=== PATIENT | female | born 1985 | race Two or more races ===

== ENCOUNTER 2020-06-25 17:32 | Emergency (ER) | payer MEDICAID ==
[~2020-06-25] VITALS: Ht 160 cm; Wt 83.5 kg
--- NOTE | 2020-06-25 18:02 | NUR ---
ED Nurse Note: Pt ambulated to ed c/o left lower qudarant abdomen pain with hemturia with visible clots. pt states that she is 8 weeks 2 para 3. pt reports that this will be her 4th . IV site established, pt urine and blood specimen collected. Addendum: 06/25/20 at 1900 by MAXIMUSON Amendment undone in EDM - 06/25/20 at 1901 by DONTE ED Nurse Note: Pt ambulated to ed c/o left lower qudarant abdomen pain with hemturia with visible clots. pt states that she is 8 weeks 24 para 2. pt reports that this will be her 4th . IV site established, pt urine and blood specimen collected. Addendum: 06/25/20 at 1901 by MAXIMUSON ED Nurse Note: Pt ambulated to ed c/o left lower qudarant abdomen pain with hemturia with visible clots. pt states that she is 8 weeks 4 para 2. IV site established, pt urine and blood specimen collected.
[2020-06-25 18:15] LABS: BASOPHILS % (AUTO) 0.7 % (0.0-2.0); HEMATOCRIT 40.5 % (37.0-47.0); HEMOGLOBIN 13.4 G/DL (12.0-16.0); LYMPHOCYTES % (AUTO) 32.2 % (20.0-45.0); MEAN CORPUSCULAR VOLUME 93 FL (80-99); NEUTROPHILS % (AUTO) 61.2 % (45.0-75.0); PLATELET COUNT 302 K/UL (150-450); RED BLOOD COUNT 4.38 M/UL (4.20-5.40); RED CELL DISTRIBUTION WIDTH 13.2 % (11.6-14.8); WHITE BLOOD COUNT 11.4 K/UL (4.8-10.8)
[2020-06-25 18:19] LABS: APPEARANCE,URINE CLEAR; BILIRUBIN, URINE NEGATIVE (NEGATIVE); COLOR,URINE PALE YELLOW; GLUCOSE, URINE (UA) NEGATIVE (NEGATIVE); KETONES,URINE NEGATIVE (NEGATIVE); LEUKOCYTE ESTERASE ,URINE 1+ (NEGATIVE); NITRITE,URINE NEGATIVE (NEGATIVE); PH,URINE 7 (4.5-8.0); PROTEIN,URINE NEGATIVE (NEGATIVE); UROBILINOGEN,URINE NORMAL MG/DL (0.0-1.0)
--- NOTE | 2020-06-25 18:34 | Emergency Room Report ---
History of Present Illness General Chief Complaint: Complications Source: Patient Present Illness HPI Patient is a 35-year-old female miscarriage and currently about 8 weeks who presents to the ER complaining of suprapubic cramping and vaginal bleeding for 1 day. Patient denies any fever or chills. She denies any chest pain or shortness of breath. She denies any vomiting or dysuria. She states that she did get care 5 days ago and everything was fine at that time. Allergies: Coded Allergies: No Known Allergies (Unverified , 06/25/20) COVID-19 Screening Contact w/high risk pt: No Experienced COVID-19 symptoms?: No COVID-19 Testing performed ARMAMENT REPAIRER: No Patient History Now: Yes Reviewed Nursing Documentation: PMH: Agreed; PSxH: Agreed Nursing Documentation-PM Past Medical History: No Stated History Review of Systems All Other Systems: negative except mentioned in HPI Physical Exam Vital Signs Date Time Temp Pulse Resp B/P (MAP) Pulse Ox O2 Delivery O2 Flow Rate FiO2 06/25/20 17:48 98.2 92 22 118/75 (89) 95 Room Air Sp02 EP Interpretation: reviewed, normal General Appearance: normal inspection Head: normocephalic, atraumatic Eyes: bilateral eye normal inspection, bilateral eye PERRL ENT: hearing grossly normal, normal pharynx, no angioedema, normal voice Neck: full range of motion, supple/symm/no masses Respiratory: chest non-tender, lungs clear, normal breath sounds, speaking full sentences Cardiovascular #1: regular rate, rhythm, no edema Gastrointestinal: normal bowel sounds, non tender, soft, non-distended, no guarding, no rebound Rectal: deferred Genitourinary: no CVA tenderness Neurologic: welder experimental III-XII nml as tested, oriented x3 Psychiatric: no suicidal/homicidal ideation Skin: no rash Lymphatic: no adenopathy Medical Decision Making Diagnostic Impression: Primary Impression: Miscarriage, threatened, early Additional Impressions: Dermoid cyst Hypokalemia ER Course Patient's labs demonstrate mild hypokalemia with potassium of 3.4. Patient given 20 mEq of oral potassium chloride. Patient's ultrasound demonstrates dermoid cyst and no IUP. hCG less than 60. I have given the patient a copy of her ultrasound and told her that she needs a repeat ultrasound within 5 days. I explained to her that she could have an ectopic or that this could be very early or that this could be a miscarriage. Patient demonstrated understanding. I gave her very strict return precautions sooner than the next 5 days including worsening pain, fever or vomiting. After discussing risks and benefits of further diagnostics, treatment plans, as well as indications for and risks of admission, the patient is agreeable to being discharged home. I have explained that their evaluation and treatment in the emergency department today is an important step towards them achieving better health but that their evaluation today is not intended to replace further evaluation and treatment by a physician in their local clinic. I have explained that while the current findings suggest no immediate life threatening emergency they will require further evaluation and treatment by a physician of their choice in their area. They understand that it will be necessary for them to review the final reports of their ED visit with their clinic physician. We have reviewed indications for return to the Emergency Department. I have explained that additional time may need to pass and/or additional testing as an outpatient may be necessary before a definitive diagnosis can be made. They tell me they are willing to follow up as instructed within the timeframe I recommend. They appear to understand what we discussed. Additionally they understand that if they are unable to be seen by an outpatient physician they are welcome, and in fact should, return to the Emergency Department for a repeat evaluation. The patient is stable at time of discharge. Laboratory Tests Test 06/25/20 18:00 White Blood Count 11.4 K/UL (4.8-10.8) H Red Blood Count 4.38 M/UL (4.20-5.40) Hemoglobin 13.4 G/DL (12.0-16.0) Hematocrit 40.5 % (37.0-47.0) Mean Corpuscular Volume 93 FL (80-99) Mean Corpuscular Hemoglobin 30.6 PG (27.0-31.0) Mean Corpuscular Hemoglobin Concent 33.0 G/DL (32.0-36.0) Red Cell Distribution Width 13.2 % (11.6-14.8) Platelet Count 302 K/UL (150-450) Mean Platelet Volume 6.4 FL (6.5-10.1) L Neutrophils (%) (Auto) 61.2 % (45.0-75.0) Lymphocytes (%) (Auto) 32.2 % (20.0-45.0) Monocytes (%) (Auto) 4.0 % (1.0-10.0) Eosinophils (%) (Auto) 2.0 % (0.0-3.0) Basophils (%) (Auto) 0.7 % (0.0-2.0) Prothrombin Time 10.7 SEC (9.30-11.50) Prothrombin Time INR 1.0 (0.9-1.1) Activated Partial Thromboplast Time 25 SEC (23-33) Urine Color Pale yellow Urine Appearance Clear Urine pH 7 (4.5-8.0) Urine Specific Darby 1.010 (1.005-1.035) Urine Protein Negative (NEGATIVE) Urine Glucose (UA) Negative (NEGATIVE) Urine Ketones Negative (NEGATIVE) Urine Blood 5+ (NEGATIVE) H Urine Nitrite Negative (NEGATIVE) Urine Bilirubin Negative (NEGATIVE) Urine Urobilinogen Normal MG/DL (0.0-1.0) Urine Leukocyte Esterase 1+ (NEGATIVE) H Urine RBC 5-10 /HPF (0 - 2) H Urine WBC 0-2 /HPF (0 - 2) Urine Squamous Epithelial Cells Few /LPF (NONE/OCC) Urine Bacteria Few /HPF (NONE) Sodium Level 139 MMOL/L (136-145) Potassium Level 3.4 MMOL/L (3.5-5.1) L Chloride Level 103 MMOL/L (98-107) Carbon Dioxide Level 27 MMOL/L (21-32) Anion Gap 9 mmol/L (5-15) Blood Urea Nitrogen 15 mg/dL (7-18) Creatinine 0.8 MG/DL (0.55-1.30) Estimated Glomerular Filtration Rate > 60 mL/min (>60) Glucose Level 136 MG/DL (74-106) H Calcium Level 8.6 MG/DL (8.5-10.1) Magnesium Level 2.1 MG/DL (1.8-2.4) Total Bilirubin 0.2 MG/DL (0.2-1.0) Aspartate Amino Transferase (AST) 7 U/L (15-37) L Alanine Aminotransferase (ALT) 28 U/L (12-78) Alkaline Phosphatase 65 U/L (46-116) Total Protein 8.0 G/DL (6.4-8.2) Albumin 4.0 G/DL (3.4-5.0) Globulin 4.0 g/dL Albumin/Globulin Ratio 1.0 (1.0-2.7) Lipase 158 U/L (73-393) Human Chorionic Gonadotropin, Quant 59 mIU/mL (1-6) H Urine Opiates Screen Negative (NEGATIVE) Urine Barbiturates Screen Negative (NEGATIVE) Phencyclidine (PCP) Screen Negative (NEGATIVE) Urine Amphetamines Screen Negative (NEGATIVE) Urine Benzodiazepines Screen Negative (NEGATIVE) Urine Cocaine Screen Negative (NEGATIVE) Urine Marijuana (THC) Screen Negative (NEGATIVE) Last Vital Signs Date Time Temp Pulse Resp B/P (MAP) Pulse Ox O2 Delivery O2 Flow Rate FiO2 06/25/20 17:48 98.2 92 22 118/75 (89) 95 Room Air Disposition: HOME, SELF-CARE Condition: Stable Additional Instructions: The patient was provided with discharge instructions, notified to follow-up with a primary care doctor and or specialist in the next 24-48 hours, and to return to the ED if they have worsening of their symptoms. Please note that this report is being documented using [employer] technology. This can lead to erroneous entry secondary to incorrect interpretation by the dictating instrument. Oly Alfredo M.D. Jun 25, 2020 18:34
[2020-06-25 18:36] LABS: ANION GAP 9 mmol/L (5-15); BLOOD UREA NITROGEN 15 mg/dL (7-18); CALCIUM 8.6 MG/DL (8.5-10.1); CARBON DIOXIDE 27 MMOL/L (21-32); CHLORIDE 103 MMOL/L (98-107); CREATININE 0.8 MG/DL (0.55-1.30); POTASSIUM 3.4 MMOL/L (3.5-5.1); SODIUM 139 MMOL/L (136-145)
[2020-06-25 18:40] LABS: ALANINE AMINOTRANSFERASE 28 U/L (12-78); ALKALINE PHOSPHATASE 65 U/L (46-116); ASPARTATE AMINO TRANSFERASE 7 U/L (15-37); BILIRUBIN,TOTAL 0.2 MG/DL (0.2-1.0)
--- NOTE | 2020-06-25 19:04 | NUR ---
HAND-OFF: Report given to EVANGELISTA CHAMBERLAIN.
--- NOTE | 2020-06-25 19:10 | NUR ---
ED Nurse Note: Recieved report to resume care, pt lying in bed awake and alert, pt placed on cardiac monitoring, pt denies having any pain at this time, states it comes and goes, pt has patent saline lock in left AC area, pt waiting for ordered ultrasound, will resume care as ordered and continue to closely monitor. pt has no active bleeding at this time, states noted only when wiping after bathroom.
[2020-06-25 19:30] VITALS: BP 120/72
--- NOTE | 2020-06-25 20:35 | NUR ---
ED Nurse Note: public works technician at bedside performing US, pt tolerating well, nad noted.
[2020-06-25 21:40] VITALS: BP 124/79
--- NOTE | 2020-06-25 21:45 | NUR ---
ER DISCHARGE NOTE: Patient is cleared to be discharged per ERMD, pt is aox4, on room air, with stable vital signs. pt was given dc instructions, pt was able to verbalize understanding, pt id band and iv site removed without complications. pt is able to ambulate with steady gait. pt took all belongings.
--- NOTE | 2020-06-25 21:50 | Diagnostic Imaging Report ---
EXAM: US Pelvis Transabdominal, Complete CLINICAL HISTORY: ABD PAIN TECHNIQUE: Real-time complete transabdominal pelvic ultrasound with image documentation. COMPARISON: No previous studies. FINDINGS: Uterus/cervix: Endometrial stripe measures 1 cm. The uterus measures 13.2 x 5.8 x 5.6 cm. Cervix measures 3.5 cm and is closed. No myometrial mass. Right ovary: Flow to the right ovary is noted per Right ovarian echogenic mass with a cyst, again possibly a dermoid lesion. Right ovary measures 2.3 x 4.9 x 3.6 cm. Normal blood flow. Left ovary: Left ovary is not visualized transvaginally. Left ovarian mass lesion with an echogenic component, possibly dermoid lesion. Left ovary measures 2.5 x 1.9 x 3.3 cm. Free fluid: No free fluid. Bladder: Unremarkable as visualized. Wall is normal thickness for degree of distention. Other findings: No intrauterine gestation is noted. Early intrauterine or ectopic gestation cannot be excluded. IMPRESSION: 1. The left ovary was not visualized transvaginally. 2. Flow to the right ovary is noted. 3. Mass lesion is noted within both ovaries possibly at the base of bilateral dermoid lesions. Further workup to confirm this finding is necessary. CT imaging or magnetic resonance imaging of the pelvis with contrast administration is advised. 4. The uterus is grossly unremarkable. 5. No intrauterine gestation. 6. Early intrauterine or ectopic gestation cannot be excluded and clinical correlation is advised. 7. No free fluid.
[2020-06-25 22:05] VITALS: BP 124/79
--- NOTE | 2020-06-25 23:10 | Diagnostic Imaging Report ---
EXAM: US Pelvis Transvaginal CLINICAL HISTORY: ABD PAIN TECHNIQUE: Real-time transvaginal pelvic ultrasound with image documentation. Transvaginal imaging was used for better evaluation of the endometrium and adnexa. COMPARISON: No relevant prior studies available. FINDINGS: Uterus/cervix: No myometrial mass. Normal endometrial thickness. Right ovary: 5 cm. 3.2 cm heterogeneous partially echogenic mass. Normal blood flow. Left ovary: 3.3 cm. 1 cm echogenic lesion. Flow Not measured due to technical limitation. Free fluid: No free fluid. IMPRESSION: 1. Both ovaries contain echogenic lesions, likely dermoid cysts. 2. Left ovary was not well characterized on the transvaginal exam and the flow was not well visualized. However this is likely due to artifact. Unlikely to be acute process/torsion at this normal size.
== END 2020-06-25 22:05 | disposition home or self-care (01) ==
LOC: EMR 18:15
DX: O20.0 Threatened abortion (principal); Z3A.08 8 weeks gestation of pregnancy; E87.6 Hypokalemia; D27.0 Benign neoplasm of right ovary
CPT/HCPCS: 36415; 76830; 76856; 80053; 80307; 81003; 83690; 83735; 84702; 85025; 85610; 85730; 86850; 86900; 86901; 96360; J7030; Z7502; 99284; J8499